=== PATIENT | female | born 1970 | race Caucasian/White ===

== ENCOUNTER → 2018-04-10 | Outpatient (CLI) | payer OTHER ==
[2018-04-10 07:30] LABS: POTASSIUM 3.8 mmol/L (3.5-5.1)
== END ==
LOC: M.RAD 03:55 → M.LAB 03:55 → EDSTATUS 11:52 → M.LAB 12:53
PROVIDERS: Student in an Organized Health Care Education/Training Program
DX: Z01.812 Encounter for preprocedural laboratory examination (principal); E11.9 Type 2 diabetes mellitus without complications; J45.909 Unspecified asthma, uncomplicated; I50.9 Heart failure, unspecified; R19.5 Other fecal abnormalities